=== PATIENT | female | born 1950 | race Two or more races ===

== ENCOUNTER 2019-08-13 19:04 | Inpatient (IN) | payer OTHER, MEDICAID ==
[~2019-08-13] VITALS: Ht 162.6 cm; Wt 89.6 kg
[~2019-08-13 19:04] MED LIST: ASPI-231 PO; ERTA1INJ2 IV; INSUINJ PO; INSUINJ37 SC; METF-370 PO
[2019-08-13] MEDS ORDERED: ACETAMINOPHEN 500 MG TAB PO ONE (19:45)
[2019-08-13 20:05] LABS: Basophils # (auto) 0.1 10 ^3/uL (0-0.2); Basophils % (auto) 0.4 % (0.0-2.0); Eosinophils # (auto) 0 10 ^3/uL (0-0.8); Hematocrit 35.7 % (36.0-46.0); Hemoglobin 11.9 g/dL (12.2-16.2); Lymphocytes # (auto) 0.9 10 ^3/uL (0.4-5.4); Lymphocytes % (auto) 6.8 % (10.0-50.0); Mean Corpuscular Hgb Conc. 33.4 g/dL (32.0-36.0); Mean Corpuscular Volume 86.9 fL (80.0-100.0); Monocytes # (auto) 1.2 10 ^3/uL (0-1.3); Monocytes % (auto) 8.8 % (0.0-12.0); Neutrophils # (auto) 11.2 10 ^3/uL (1.6-8.6); Nucleated Red Blood Cells % 0.1 %; Platelet Count (auto) 324 10^3/uL (140-450); Red Blood Cells 4.11 10^6/uL (4.0-5.20); Red Cell Distribution Width 13.8 % (11.8-14.3); White Blood Cell 13.4 10^3/uL (4.4-10.8)
[2019-08-13 20:18] LABS: Albumin 2.9 g/dL (3.4-5.0); Anion Gap 12 (5-15); Blood Urea Nitrogen 10 mg/dL (7-18); Carbon Dioxide 23 mmol/L (21-32); Chloride 85 mmol/L (98-107); Glucose 267 mg/dL (74-106); Magnesium 2.1 mg/dL (1.6-2.6); Sodium 120 mmol/L (136-145)
[2019-08-13 20:22] LABS: INR 1.03 (0.9-1.15); Partial Thromboplastin Time 33.1 sec (23.64-32.05)
[2019-08-13 20:27] LABS: Alanine Aminotransferase 27 U/L (13-56); Alkaline Phosphatase 74 U/L (45-117); Aspartate Aminotransferase 27 U/L (15-37); BUN/Creatinine Ratio 11.4; Bilirubin, Total 0.4 mg/dL (0.2-1.0); GFR African American 82 mL/min; GFR Non-African American 68 mL/min; Total Protein 9.1 g/dL (6.4-8.2)
[2019-08-14] MEDS ORDERED: SODIUM CHLORIDE 0.9% 1,000 ML IV ONE (00:45)
[2019-08-14] MEDS ORDERED: levoFLOXacin 750MG 150 ML IV ONE (00:45)
[2019-08-14] MEDS ORDERED: SODIUM CHLORIDE 0.9% 1,000 ML IV SCH ×2 (02:10→18:00)
[2019-08-14] MEDS ORDERED: TEMAZEPAM 15 MG CAP PO PRN (02:15)
[2019-08-14] MEDS ORDERED: ONDANSETRON HCL 4 MG/2 ML VIAL IV PRN (02:15)
[2019-08-14] MEDS ORDERED: DEXTROSE (50%) 50ML SYRG IV PRN (02:15)
[2019-08-14] MEDS ORDERED: ACETAMINOPHEN 325 MG TAB PO PRN (02:15)
[2019-08-14] MEDS ORDERED: NITROGLYCERIN 0.4 MG SL TAB SL PRN (02:45)
[2019-08-14] MEDS ORDERED: MORPHINE SULF INJ 2 MG/ML SYRINGE 1ML IV PRN (02:45)
[2019-08-14 03:24] LABS: Lactate Dehydrogenase 224 U/L (84-246)
[2019-08-14 03:31] LABS: CRP High Sensitivity > 19 mg/dL (< 0.3)
--- NOTE | 2019-08-14 04:10 | NUR ---
Telemetry admit from [facility] admitted to Telemetry unit. Patient oriented to MYA WHYTE RN primary RN, MST unit, room 247, bed B, and unit policies regarding patient care and visiting hours. Patient now on continuous telemetry monitoring, tele box #8 and telemetry reading on arrival to unit is sinus rhythm in the 90s. Patient placed on bedside oxygen at 4L via NC, weighed by bedscale and encouraged to call if they need something. All questions and concerns addressed, patient verbalized understanding. Note: Patient, awake, alert and oriented x4, on 4L of oxygen via NC with even and unlabored respirations, no S/S of distress/SOB or pain. Patient able to ambulate and turn independently, bed in lowest locked position, side rails up x2, and call light within reach. Instructed on POC and to call for assist PRN, will continue to monitor for changes Q1hr and PRN.
[2019-08-14] MEDS ORDERED: LOSA-69 PO (04:42)
[2019-08-14] MEDS ORDERED: SIMV10TA84 PO (04:42)
[2019-08-14] MEDS: DOXYCYCLINE 100MG/250ML 250 ML IV SCH ×2 (05:15→17:14)
[2019-08-14] MEDS: ACCU-CHEK COMFORT CURVE STRIP VI SCH ×3 (05:15→17:43)
[2019-08-14] MEDS: InsuLIN REG 1unit/0.01ml Soln (100units/ml) SC SCH ×3 (05:16→18:02)
--- NOTE | 2019-08-14 08:00 | NUR ---
OPENING SHIFT NOTE ASSUMED CARE OF PATIENT AWAKE AND ALERT. NO S/S OF DISTRESS NOTED OR COMPLAINTS OF PAIN. PATIENT UPDATED ON POC FOR THE DAY AND ALL QUESTIONS ANSWERED. BED IS IN LOWEST, LOCKED POSITION WITH SIDE RAILS UP X2 AND CALL LIGHT WITHIN REACH. WILL CONTINUE TO MONITOR Q1H AND PRN.
[2019-08-14] MEDS: ASCORBIC ACID 1,000 MG TAB PO SCH (10:27)
[2019-08-14] MEDS: FAMOTIDINE 20 MG TAB PO SCH ×2 (10:27→22:00)
[2019-08-14] MEDS: CHOLECALCIFEROL (VITD3) 1,000UNIT=25mCg TAB PO SCH (10:27)
[2019-08-14] MEDS: ZINC SULFATE 220mg CAP or TAB PO SCH (10:27)
[2019-08-14] MEDS: ENOXAPARIN SOD 40 MG/0.4 ML SYRINGE SC SCH (10:28)
[2019-08-14] MEDS ORDERED: cefTRIAXone 1GM/50ML D5W 50 ML IV ONE (11:15)
[2019-08-14] MEDS ORDERED: METF-929 PO (12:21)
--- NOTE | 2019-08-14 16:12 | NUR ---
RECEIVED REPORT AND CONTINUATION OF CARE FROM CAMILLE MOORE
--- NOTE | 2019-08-14 16:39 | NUR ---
TRANSFER OF CARE CARE ENDORSED TO LAKISHA MOORE
--- NOTE | 2019-08-14 16:40 | NUR ---
TRANSFERRED TO ROOM 297A,PATIENT PICKED UP BY RADIOLOGY DEPT FOR TO CT SCAN DEPT. FOR CT HEAD AND CT ABD.
--- NOTE | 2019-08-14 17:10 | NUR ---
PATIENT BACK TO ROOM FROM CT SCAN [facility]PT. NO SOB NO DISTRESS ON ROOM AIR.
--- NOTE | 2019-08-14 17:45 | NUR ---
MD VISIT OLIVER PAYNE HERE TO SEE AND EXAMINED PATIENT,MADE AWARE OF SODIUM LEVEL OF 120,122,RECEIVED ORDER TO START IVF OF NS AT 50CC/HR,SEND URINE FOR,URINE OSMOLALITY,Na+,Creatinine. ses order written.
--- NOTE | 2019-08-14 17:50 | NUR ---
SEEN AND AWARE OF CT SCAN OF HEAD AND ABDOMEN RESULT.
[2019-08-14 18:46] LABS: Urine Amorphous Crystal FEW /hpf (None Seen); Urine Bacteria NONE SEEN /hpf (None Seen); Urine Blood 2+ /uL (Negative); Urine Mucus FEW (None Seen); Urine Specific Gravity 1.019 (1.001-1.035); Urine WBC 4 /hpf (0 - 5)
--- NOTE | 2019-08-14 19:17 | NUR ---
Status unchanged,no distress,no discomfort.report given to incoming NOC shift RN.
--- NOTE | 2019-08-14 20:19 | NUR ---
CRITICAL LAB Received call from lab that the patient has a critical sodium level of 119. Hospitalist has been paged.
--- NOTE | 2019-08-14 20:52 | NUR ---
HOSPITALIST [facility] HAS BEEN NOTIFIED ABOUT THE PATIENT"S CRITICALLY LOW SODIUM. ORDER RECEIVED FOR 500 ML NS BOLUS AND INCREASE RATE OF SODIUM CHLORIDE 0.9% TO 75 MLS/HR.
[2019-08-14] MEDS ORDERED: SODIUM CHLORIDE 0.9% 500 ML IV ONE (21:15)
[2019-08-14 22:00] VITALS: BP 102/53
--- NOTE | 2019-08-14 22:45 | NUR ---
HOSPITALIST SHAWNA NOTIFIED ON LATEST SODIUM LAB RESULTS. SODIUM HAS IMPROVED TO 122. ORDER OBTAINED FOR SODIUM LAB IN AM.
[2019-08-14] MEDS: SODIUM CHLORIDE 0.9% 1,000 ML IV SCH (23:15)
--- NOTE | 2019-08-15 00:25 | NUR ---
URINE HAS BEEN SENT TO LAB.
[2019-08-15] MEDS: ACCU-CHEK COMFORT CURVE STRIP VI SCH ×3 (00:27→12:44)
[2019-08-15] MEDS: InsuLIN REG 1unit/0.01ml Soln (100units/ml) SC SCH ×3 (00:27→12:44)
[2019-08-15 02:03] LABS: Creatinine, Urine 40 mg/dL (30.0-125.0); Sodium Urine 18 mmol/L (40-220)
[2019-08-15] MEDS: DOXYCYCLINE 100MG/250ML 250 ML IV SCH ×2 (03:15→10:09)
[2019-08-15 05:00] VITALS: BP 113/57
[2019-08-15 06:56] LABS: Basophils # (auto) 0 10 ^3/uL (0-0.2); Basophils % (auto) 0.4 % (0.0-2.0); Eosinophils # (auto) 0.1 10 ^3/uL (0-0.8); Eosinophils % (auto) 1.1 % (0.0-7.0); Hematocrit 30.6 % (36.0-46.0); Hemoglobin 10.6 g/dL (12.2-16.2); Lymphocytes # (auto) 0.9 10 ^3/uL (0.4-5.4); Lymphocytes % (auto) 12.3 % (10.0-50.0); Mean Corpuscular Hemoglobin 29.8 pg (28.0-32.0); Mean Corpuscular Hgb Conc. 34.6 g/dL (32.0-36.0); Mean Corpuscular Volume 85.9 fL (80.0-100.0); Neutrophils # (auto) 5.3 10 ^3/uL (1.6-8.6); Neutrophils % (auto) 72.2 % (37.0-80.0); Platelet Count (auto) 319 10^3/uL (140-450); Red Blood Cells 3.56 10^6/uL (4.0-5.20); White Blood Cell 7.3 10^3/uL (4.4-10.8)
--- NOTE | 2019-08-15 07:00 | NUR ---
Opening Shift Note Received report from the patient. Awake lying in bed. Discussed the plan of care with the patient. Patient shows no signs of distress at this time. Bed in lowest position, side rails up x2, and call light is within reach. Will continue to monitor.
[2019-08-15 07:08] LABS: Albumin 2.3 g/dL (3.4-5.0); BUN/Creatinine Ratio 11.7; Potassium 3.6 mmol/L (3.5-5.1)
[2019-08-15 07:11] LABS: Bilirubin, Total 0.2 mg/dL (0.2-1.0); Total Protein 7.3 g/dL (6.4-8.2)
[2019-08-15 08:00] VITALS: BP 125/70
--- NOTE | 2019-08-15 08:30 | NUR ---
Received a call from Dr. Samuel to make sure the patient gets all of her IV antibiotics before she is discharged. Called the pharmacy to change the time of the Doxy to 11am. Per Pharmacist "we don't need to change the time, it is ok to just give it at 11"
[2019-08-15] MEDS ORDERED: cefTRIAXone 1GM/50ML D5W 50 ML IV SCH (09:00)
[2019-08-15] MEDS: ASCORBIC ACID 1,000 MG TAB PO SCH (10:08)
[2019-08-15] MEDS: ZINC SULFATE 220mg CAP or TAB PO SCH (10:08)
[2019-08-15] MEDS: FAMOTIDINE 20 MG TAB PO SCH (10:08)
[2019-08-15] MEDS: CHOLECALCIFEROL (VITD3) 1,000UNIT=25mCg TAB PO SCH (10:09)
[2019-08-15] MEDS: ENOXAPARIN SOD 40 MG/0.4 ML SYRINGE SC SCH (10:09)
[2019-08-15] MEDS ORDERED: ASCORBIC ACID 500 MG TAB PO SCH (10:27)
[2019-08-15 10:56] VITALS: BP 125/70
[2019-08-15 12:00] VITALS: BP 123/70
[2019-08-15] MEDS: SODIUM CHLORIDE 0.9% 1,000 ML IV SCH (12:35)
[2019-08-15] MEDS ORDERED: DOXYCYCLINE 100 MG TAB/CAP PO SCH (22:00)
== END 2019-08-15 13:56 | disposition home or self-care (01) | DRG 194 ==
LOC: ER 19:04 → TELE 19:05 → TELE-EAST 08-14 04:10 → TELE-WESTW 08-14 18:00
PROVIDERS: ADMIT Nurse Practitioner; ATTEND Internal Medicine
DX: J18.9 Pneumonia, unspecified organism (principal); E87.1 Hypo-osmolality and hyponatremia; I10 Essential (primary) hypertension; D72.829 Elevated white blood cell count, unspecified; E11.9 Type 2 diabetes mellitus without complications; E66.9 Obesity, unspecified; Z03.818 Encounter for observation for suspected exposure to other biological agents ruled out; Z79.899 Other long term (current) drug therapy; Z79.82 Long term (current) use of aspirin; Z79.84 Long term (current) use of oral hypoglycemic drugs; Z79.4 Long term (current) use of insulin; Z90.710 Acquired absence of both cervix and uterus; Z82.49 Family history of ischemic heart disease and other diseases of the circulatory system; Z82.61 Family history of arthritis; Z68.29 Body mass index [BMI] 29.0-29.9, adult
CPT/HCPCS: 36415; 70450; 71045; 74176; 80053; 81001; 82570; 82728; 82962; 83036; 83615; 83735; 83880; 83935; 84295; 84300; 84439; 84443; 84484; 85025; 85379; 85610; 85730; 86141; 87040; 87070; 87804; 87880; 93005; 96365; G0378; J0696; J1815; J1956; J3490